=== PATIENT | male | born 1995 | race Caucasian/White ===

== ENCOUNTER 2022-03-21 08:13 | Outpatient (CLI) | payer OTHER ==
[2022-03-21] MEDS ORDERED: DIATR MEGLU/DIATRIZ SOD 30 ML SOLUTION PO ONE (08:25)
== END 2022-03-21 18:57 | disposition home or self-care (01) ==
LOC: SCT 08:13
PROVIDERS: ATTEND Internal Medicine Endocrinology, Diabetes & Metabolism
DX: K35.80 Unspecified acute appendicitis (principal); R10.31 Right lower quadrant pain
CPT/HCPCS: 74178; 76376; Q9967; Q9964